=== PATIENT | female | born 1995 ===

== ENCOUNTER 2017-12-22 15:03 | Emergency (ER) | payer OTHER ==
[2017-12-22 15:23] VITALS: O2SAT 100
--- NOTE | 2017-12-22 16:43 | C.PDOC ---
History Of Present Illness 22yo female, otherwise healthy, presents to ED with complaints of dizziness with intermittent episodes of chest pain for the past hour. Patient states when the symptoms started, she was at work and denies any stressors which might have triggered her presentation. She states the chest pain lasts for less than 2 minutes at a time and is not currently present. She described pain as midsternal pressure with sensation of rapid hearbeats. Patient has history of similar episodes and anxiety. She states she took Propanolol 1 hour prior to arrival with moderate relief of her symptoms. She denies any headache, weakness , fever, chills, abdominal pain, back pain. She has no other medical complaints. LMP: 2 weeks ago Time Seen by Provider: 12/22/17 15:59 Chief Complaint (Nursing): Chest Pain History Per: Patient History/Exam Limitations: no limitations Onset/Duration Of Symptoms: Hrs (1), Intermittent Episodes Current Symptoms Are (Timing): Better Quality: Pressure, "Pain" Associated Symptoms: Nausea Past Medical History Reviewed: Historical Data, Nursing Documentation, Vital Signs Vital Signs: Last Vital Signs Temp 98.2 F 12/22/17 16:59 Pulse 64 12/22/17 16:59 Resp 18 12/22/17 16:59 BP 128/76 12/22/17 16:59 Pulse Ox 100 12/22/17 17:04 - Medical History PMH: No Chronic Diseases Surgical History: No Surg Hx Family History: States: Diabetes, Hypertension - Social History Hx Alcohol Use: No Hx Substance Use: No - Immunization History Hx Tetanus Toxoid Vaccination: No Hx Influenza Vaccination: Yes Hx Pneumococcal Vaccination: No Review Of Systems Except As Marked, All Systems Reviewed And Found Negative. Constitutional: Negative for: Fever, Chills Cardiovascular: Positive for: Chest Pain Respiratory: Negative for: Cough, Shortness of Breath Musculoskeletal: Negative for: Back Pain Neurological: Negative for: Dizziness Physical Exam - Physical Exam Appears: Non-toxic, No Acute Distress Skin: Normal Color, Warm, Dry Head: Atraumatic, Normacephalic Eye(s): bilateral: Normal Inspection, PERRL, EOMI Oral Mucosa: Moist Neck: Normal ROM, Supple Chest: Symmetrical, No Tenderness Cardiovascular: Rhythm Regular, No Murmur Respiratory: Normal Breath Sounds, No Wheezing Gastrointestinal/Abdominal: Normal Exam, Soft, No Tenderness Back: Normal Inspection Extremity: Bilateral: Atraumatic, Normal Color And Temperature, Normal ROM Neurological/Psych: Oriented x3, Normal Speech Gait: Steady ED Course And Treatment ECG: Interpreted By Me, Viewed By Me ECG Rhythm: Sinus Rhythm ECG Interpretation: No Acute Changes Rate From EC O2 Sat by Pulse Oximetry: 100 (RA) Pulse Ox Interpretation: Normal - Radiology CXR: Interpreted by Me, Viewed By Me CXR Interpretation: Yes: No Acute Disease, Heart Size (within normal limits). No: Infiltrates, COPD, Cardiomegaly, Pnemothorax Medical Decision Making Medical Decision Making: Impression: Chest pain young adult, likely musculoskeletal or anxiety related Plan: -- EKG -- CXR Progress: EKG shows normal sinus without any ischemic changes and CXR shows no active disease. PERC score 0 and GUSTABO 0. Patient remained well in no acute distress. She was sitting comfortably in bed actively talking with her boyfriend and denied any further episodes of palpitations or chest pain. There are little risk factors and very low suspicion for ACS. Patient is stable for discharge. Recommend rest and analgesics. Patient asked for work note for 2 days off. Disposition Counseled Patient/Family Regarding: Diagnosis, Need For Followup - Disposition Disposition: HOME/ ROUTINE Disposition Time: 17:04 Condition: STABLE Additional Instructions: Follow up with your primary medical doctor or clinic in 2-5 days for further evaluation. Take medications as prescribed. Return to the emergency department at any time if symptoms persist or worsen. Instructions: Anxiety, Adult (DC) Forms: Work Excuse - POA Present On Arrival: None - Clinical Impression Clinical Impression: Anxiety - PA / WING COVERER / Resident Statement MD/DO has reviewed & agrees with the documentation as recorded. - Scribe Statement The provider has reviewed the documentation as recorded by the Scribe (Ann Denney) Provider Attestation: All medical record entries made by the Scribe were at my direction and personally dictated by me. I have reviewed the chart and agree that the record accurately reflects my personal performance of the history, physical exam, medical decision making, and the department course for this patient. I have also personally directed, reviewed, and agree with the discharge instructions and disposition.
[2017-12-22 17:00] VITALS: BP 128/76; PULSE 64; RESP 18; TEMP 98.2
--- NOTE | 2017-12-22 18:54 | RAD ---
HISTORY: Anxiety chest tightness COMPARISON: No prior. TECHNIQUE: Chest PA and lateral FINDINGS: LUNGS: No active pulmonary disease. PLEURA: No significant pleural effusion identified. No pneumothorax apparent. CARDIOVASCULAR: Normal. OSSEOUS STRUCTURES: No significant abnormalities. VISUALIZED UPPER ABDOMEN: Normal. OTHER FINDINGS: None. IMPRESSION: No active disease.
--- NOTE | 2017-12-23 15:13 | CARD ---
APPROVED REPORT EKG Measurement Heart [id number] <Conclusion> Normal sinus rhythm Normal ECG
== END 2017-12-22 17:08 | disposition home or self-care (01) ==
LOC: C.ER 15:03
DX: F41.9 Anxiety disorder, unspecified (principal)